=== PATIENT | female | born 1975 | race Caucasian/White ===

== ENCOUNTER 2017-03-18 16:51 | Emergency (ER) | payer BC ==
[~2017-03-18] VITALS: Ht 170.2 cm; Wt 54.0 kg
[2017-03-18 16:54] VITALS: BP 129/88; PULSE 89; RESP 20; TEMP 98.4; O2SAT 99
--- NOTE | 2017-03-18 17:19 | PD ---
HPI Chief Complaint: Injury Time Seen by Provider: 17:10 Travel History International Travel<30 days: No Contact w/Intl Traveler<30days: No Traveled to known affect area: No History of Present Illness HPI 41-year-old female complains of left forearm pain, left hip pain area patient fell this afternoon. Patient denies loss of consciousness. Patient denies headache or neck pain. Patient denies any chest pain or shortness of breath. She denies abdominal pain. Patient complains sharp pain localized to left forearm and also left hip area. Patient denies any focal weakness or numbness of extremity. PFSH Past Medical History ?: Not Social History Alcohol Use: No Tobacco Use: No Substance Use: No Allergies-Medications (Allergen,Severity, Reaction): Coded Allergies: Sulfa (Sulfonamide Antibiotics) (Verified Allergy, Unknown, 03/18/17) ketoconazole (Verified Allergy, Unknown, 03/18/17) Review of Systems General / Constitutional: No: Fever Eyes: No: Visual changes HENT: No: Headaches Cardiovascular: No: Chest Pain or Discomfort Respiratory: No: Shortness of Breath Gastrointestinal: No: Abdominal Pain Genitourinary: No: Dysuria Musculoskeletal: Positive: Pain Skin: No Rash Neurologic: No: Weakness Psychiatric: No: Depression Endocrine: No: Polydipsia Hematologic/Lymphatic: No: Easy Bruising Physical Exam Narrative GENERAL: Well-nourished, well-developed patient. SKIN: Focused skin assessment warm/dry. HEAD: Normocephalic. EYES: No scleral icterus. No injection or drainage. NECK: Supple, trachea midline. No JVD or lymphadenopathy. CARDIOVASCULAR: Regular rate and rhythm without murmurs, gallops, or rubs. RESPIRATORY: Breath sounds equal bilaterally. No accessory muscle use. GASTROINTESTINAL: Abdomen soft, non-tender, nondistended. MUSCULOSKELETAL: No cyanosis, or edema. BACK: Nontender without obvious deformity. No CVA tenderness. Patient has soft tissue swelling with tenderness on palpation left forearm ulnar aspect. Full range of motion the shoulder and elbow and wrist and fingers. Patient had moderate tenderness on palpation lateral aspect left hip and posterior aspect left hip joint. Full range of motion lower extremity. Sensorimotor function distally intact. Data Data Last Documented VS Vital Signs Date Time Temp Pulse Resp B/P (MAP) Pulse Ox O2 Delivery O2 Flow Rate FiO2 03/18/17 17:06 92 18 98 Room Air 2/4/18 16:54 98.4 129/88 (102) Orders Orders Ed Urine Pregnancytest Poc (03/18/17 17:14) Forearm (2vws) (03/18/17 17:14) Hip, Uni(Ap&Lat) W Ap Pelvis (03/18/17 17:14) MDM Medical Decision Making Medical Screen Exam Complete: Yes Emergency Medical Condition: Yes Interpretation(s) Last Impressions Radius/Ulna X-Ray 03/18/171713 Signed Impressions: Service Date/Time: Saturday, March 18, 2017 17:34 - CONCLUSION: Unremarkable study. Rodo Leigh MD Hip and Pelvis X-Ray 03/18/171713 Signed Impressions: Service Date/Time: Saturday, March 18, 2017 17:38 - CONCLUSION: Unremarkable study. Rodo Leigh MD Differential Diagnosis Differential diagnosis including contusion, fracture, dislocation. Narrative Course 41-year-old female with left forearm left hip injury. Diagnosis Primary Impression: Contusion of left forearm Qualified Codes: S50.12XA - Contusion of left forearm, initial encounter Additional Impression: Contusion of left hip Qualified Codes: S70.02XA - Contusion of left hip, initial encounter Patient Instructions: General Instructions Additional Instructions: Ice pack as needed. Ibuprofen for pain. Follow-up with personal physician or orthopedist if persistent problem. Med/Other Pt SpecificInfo: Prescription(s) given Scripts Ibuprofen (Ibuprofen) 600 Mg Tab 600 MG PO TID for Pain, #30 TAB 0 Refills Prov: Marvin Rizvi MD 03/18/17 Disposition: 01 DISCHARGE HOME Condition: Stable Marvin Rizvi MD Mar 18, 2017 17:18
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
[2017-03-18] MEDS ORDERED: IBUP-232 PO (18:06)
== END 2017-03-18 18:26 | disposition home or self-care (01) ==
LOC: NEPD 16:51
DX: S50.12XA Contusion of left forearm, initial encounter (principal); S70.02XA Contusion of left hip, initial encounter; W19.XXXA Unspecified fall, initial encounter; Z88.2 Allergy status to sulfonamides; Z88.8 Allergy status to other drugs, medicaments and biological substances
CPT/HCPCS: 73090; 73502; 84703; 99284